=== PATIENT | male | born 1950 | race Hispanic/Latino ===

== ENCOUNTER → 2024-03-26 | Outpatient (REF) | payer MEDICARE ==
[~2024-03-26] MED LIST: CRESTOR10 MG PO; FLOMAX0.4 MG PO; IOPAMIDOL 370 MG/ML 100 ML INFUS..BTL INJ ONE; LEVOTHYROXINE50 MCG PO; MELATONIN3 MG PO; SODIUM CHLORIDE 0.9% 250ML 250 ML ONE
[2024-03-26 16:23] LABS: CREATININE, SERUM 1.05 mg/dL (0.72-1.25)
== END ==
LOC: CT 15:35
PROVIDERS: ATTEND Urology
DX: R31.21 Asymptomatic microscopic hematuria (principal)
CPT/HCPCS: 36415; 74178; 82565; 84520; J7050; Q9967